=== PATIENT | female | born 1990 | race Caucasian/White ===

== ENCOUNTER → 2018-08-23 10:01 | Outpatient (CLI) | payer BC, SELFPAY ==
[2018-08-23 12:02] LABS: Hematocrit 42.6 % (37-47); Hemoglobin 14.3 g/dl (12.0-15.0); Mean Corp Hgb Conc 33.6 g/gl (32-36); Mean Corpuscular Hgb 28.3 pg (27.0-32.0); Mean Corpuscular Volume 84.2 fL (81-99); Mean Platelet Vol. 9.9 fl (6.2-12.0); Platelet Count 420 K/mm3 (150-450); RBC Distribution Width CV 12.5 % (11.6-14.6); RBC Distribution Width SD 38.3 fl (35.1-43.9); Red Blood Count 5.06 M/mm3 (4.2-5.4); White Blood Count 10.1 K/mm3 (4.4-11.0)
[2018-08-23 12:12] LABS: Scan Indicated on CBC? Y/N NO
[2018-08-23 12:13] LABS: Hemoglobin A1c 5.4 % (4.2-6.3)
[2018-08-23 12:16] LABS: Vitamin D,25 Hydroxy 16.5 ng/mL (29.95-100.01)
[2018-08-23 12:25] LABS: AST(SGOT) 21 U/L (15-37); Alanine Aminotransfer ALT/SGPT 44 U/L (13-56); Anion Gap 10 (5-15); BUN 8 mg/dL (7-18); BUN/Creat Ratio 11.3 RATIO (10-20); Calcium,Total 9.4 mg/dL (8.5-10.1); Chloride 107 mmol/L (98-107); Cholesterol 210 mg/dL (200); Creatinine, Serum 0.71 mg/dL (0.55-1.02); EST Glomerular Filtration Rate 103 mL/min (>60); Est Glom Filt Rate - Afr Amer 124 mL/min (>60); Glucose 89 mg/dL (74-106); High Density Lipoprotein 36 mg/dL; Potassium 4.1 mmol/L (3.5-5.1); Sodium Level 141 mmol/L (136-145); Thyroid Stim Hormone (TSH) 2.61 uIU/mL (0.358-3.74); Triglycerides 217 mg/dL; Very Low Density Lipoprotein 43 mg/dL (5-40)
== END ==
DX: Z79.899 Other long term (current) drug therapy (principal)
CPT/HCPCS: 36415; 80048; 80061; 80178; 82306; 83036; 84443; 84450; 84460; 85027

== ENCOUNTER → 2018-09-30 19:39 | Outpatient (CLI) | payer BC, SELFPAY ==
--- NOTE | 2018-09-30 14:30 | VUL_PTH ---
PATIENT: KESHIA MEREDITH LOC: [facility] U#:[id number] AGE/SX: 35/F ROOM: RE09/30/[address]: Dr. Uriel Vaughan MD : [id number] BED: DIS: SPEC #: [id number] RECD: 09/30/18 17:44 STATUS: ZEHRA REEmma #: [id number] JUAN CARLOS: 09/30/18 14:[address]: Uriel Vaughan DEPT: SURGICAL PATHOLOGY RECD BY: Manjinder Sanford ENTERED: 10/01/18 08:25 SP TYPE: VULVA BX OTHR DR: No Primary Care Phys Tissues: Vulva, NOS Procedures: Surgery Specimen Level IV HEADER OPERATION: Vulvar biopsy PRE-OP DIAGNOSIS: L91.8 TISSUE SUBMITTED: Vulvar biopsy MICROSCOPIC DIAGNOSIS Vulva, punch biopsy: A piece of skin with hyperkeratosis and minimal chronic inflammation. SJ:ling 10/04/18 COMMENT Clinical correlation and appropriate follow up are necessary. MICROSCOPIC DESCRIPTION Slides are reviewed. GROSS DESCRIPTION Received in fixative is one container labeled with the patient's name and designated vulvar biopsy. The specimen consists of one irregular fragment of lorenzo-yellow soft tissue that measures 0.4 x 0.2 x 0.2 cm. The specimen is totally submitted in one cassette. / RY:ling 10/01/18 TC:3 [facility]: [id number]
[2018-10-06 15:35] LABS: HPV Reflexed? NOT INDICATED
== END ==
PROVIDERS: Referring Provider Obstetrics & Gynecology; Visit Provider Obstetrics & Gynecology
DX: Z12.4 Encounter for screening for malignant neoplasm of cervix (principal); L91.8 Other hypertrophic disorders of the skin
CPT/HCPCS: 87624; 88175; 88305; G0145

== ENCOUNTER → 2018-12-27 16:32 | Outpatient (CLI) | payer BC, SELFPAY | PROVIDERS: Visit Provider Obstetrics & Gynecology | DX: N39.0 Urinary tract infection, site not specified (principal) | CPT/HCPCS: 87086; 87088 ==

== ENCOUNTER → 2019-11-04 13:19 | Outpatient (CLI) | payer BC, SELFPAY | PROVIDERS: Visit Provider Obstetrics & Gynecology | DX: R30.0 Dysuria (principal) | CPT/HCPCS: 87086 ==

== ENCOUNTER 2020-07-23 13:09 | Outpatient (RCR) | payer BC, SELFPAY | END 2020-07-25 23:59 | LOC: NS 13:09 | PROVIDERS: Visit Provider Nurse Practitioner Family | DX: Z71.3 Dietary counseling and surveillance (principal); E66.9 Obesity, unspecified; Z68.37 Body mass index [BMI] 37.0-37.9, adult | CPT/HCPCS: 97802 ==

== ENCOUNTER 2020-08-21 13:30 | Outpatient (RCR) | payer BC, SELFPAY | END 2020-08-25 23:59 | LOC: NS 13:30 | PROVIDERS: Visit Provider Nurse Practitioner Family | DX: Z71.3 Dietary counseling and surveillance (principal); E66.9 Obesity, unspecified; Z68.37 Body mass index [BMI] 37.0-37.9, adult | CPT/HCPCS: 97803 ==

== ENCOUNTER 2020-09-18 15:00 | Outpatient (RCR) | payer BC, SELFPAY ==
[2020-08-27 11:10] VITALS: BMI 43.3
== END 2020-09-24 23:59 ==
LOC: NS 15:00
PROVIDERS: Visit Provider Nurse Practitioner Family
DX: Z71.3 Dietary counseling and surveillance (principal); E66.9 Obesity, unspecified; Z68.37 Body mass index [BMI] 37.0-37.9, adult
CPT/HCPCS: 97803

== ENCOUNTER 2020-09-21 19:26 | Emergency (ER) | payer BC, SELFPAY ==
[2020-08-27 11:10] VITALS: BMI 43.3
[2020-09-21 19:27] VITALS: BP 163/112; PULSE 128; RESP 16; TEMP 36.3; O2SAT 98; BMI 36.8
--- NOTE | 2020-09-21 19:43 | EKG12_ITS ---
Test Reason : HEADACHE Blood Pressure : / mmHG Vent. Rate : 120 BPM Atrial Rate : 120 BPM P-R Int : 140 ms QRS Dur : 080 ms QT Int : 320 ms P-R-T Axes : 062 069 049 degrees QTc Int : 452 ms Sinus tachycardia Otherwise normal ECG Confirmed by ASH WALSH, BILLIE ([id number]), sports editor JANE PATEL ([id number]) on 09/25/2020 9:09:07 AM Referred By: GÉNESIS Confirmed By:BILLIE ALEMAN MD
--- NOTE | 2020-09-21 19:45 | ED.DCSUM_ITS ---
- ER Visit Summary Date of Service: 09/21/20 Chief Complaint: Headache History of Present Illness: The patient is a [address] Torre. She reports that she has a headache that began 1 month ago. Is a continuous aching pressure that is frontal in location. 6-10 at worst and 4-10 currently. Is worsened by standing relieved by laying down. She has had nausea without vomiting. No fever. She has had photophobia. Patient reports that she is been on Augmentin for the past week for a sinus infection. She denies any fever or chills. She does report she has a cough that is productive of thick white sputum without blood. This is been present for 1 month as well. She had a negative Covid with the onset of this. She reports that since starting the Augmentin she is having diarrhea approximately 4 times a day. No blood in her stools or black tarry stools. She denies any numbness or weakness. Physical Examination: Vitals: Stable. Afebrile. General: Well-nourished and well-developed. Head: Normocephalic atraumatic. Neck: Supple, no lymphadenopathy. No JVD. Nontender. Cardiovascular: Tachycardic regular rhythm. No murmurs. Respiratory: No respiratory distress. Clear to auscultation bilaterally. Abdominal: Soft, nontender, nondistended, normal bowel sounds. No guarding, rebound, or peritoneal signs. Back: Nontender. Extremities: Nontender, no edema. Skin: Normal color, no rash. Neurologic: Alert and oriented ?3. Cranial nerves II through XII are intact. Normal strength and sensation. Psych: Normal affect. Test Results: EKG shows sinus tachycardia at a rate of [address] changes. CBC is normal. Chem-7 shows a chloride of 109, glucose 123. test is negative. UCG is 1.57. Chest x-ray shows no acute disease. COVID-[address] brain shows no acute disease. Emergency Department Course and Treatment: Patient had an IV placed. She was given a liter normal saline. She was given Tylenol for headache. She refused nausea medications. Treatment Plan: Patient will be discharged with symptomatic care. Follow-up with her primary care physician in 3 to 5 days if not improving. Return to the emergency department for any worsening symptoms. Disposition: To home in improved and stable condition. Impression: 1. Cephalgia. 2. URI. 3. Sinus tachycardia. This note was generated with [employer] dictation software. It may contain incorrect words, spelling, and punctuation that were not noted in review of the chart prior to signing ED Disposition - Plan for ED Patient: Instructions: ED Headache Unspecified Referrals: Melly Mendez SUPERINTENDENT MAINTENANCE, SUPERINTENDENT MAINTENANCE-C [Primary Care Provider] - 3-5 Days if not improving
[2020-09-21] MEDS: 0.9% Normal Saline 1,000 ML 1000 ML IV (20:00)
--- NOTE | 2020-09-21 20:00 | RAD_ITS ---
STUDY: X-RAY CHEST REASON FOR EXAM: Female, 30 years old. Headache TECHNIQUE: Frontal view of the chest COMPARISON: None. FINDINGS: The lungs are clear. There are no pleural effusions. There is no pneumothorax. The heart is normal in size. The visualized osseous structures are within normal limits. RAD/Chest 1 View (Portable) IMPRESSION: No acute thoracic pathology. Electronically Signed: Stephane Ware, at 20:44 EST Tel , Service support ,
[2020-09-21] MEDS: Acetaminophen 500 MG Tablet 1000 MG PO (20:01)
[2020-09-21 20:05] VITALS: PULSE 125; RESP 16; O2SAT 95
[2020-09-21 20:12] LABS: Absolute Lymphocyte Count 2.69 X10^3/uL (0.83-4.51); Absolute Neutrophil Count 6.5 X10^3/uL (2.0-7.7); Basophil# 0.07 X10^3/uL; Basophil% 0.7 % (0-1); Eosinophil# 0.35 X10^3/uL; Eosinophils% 3.4 % (0-5); Hematocrit 44.4 % (37-47); Hemoglobin 14.7 g/dL (12.0-15.0); Lymphocyte # 2.69 X10^3/ul (4.0); Lymphocyte % 26.4 % (19-41); Mean Corp Hgb Conc 33.1 g/dL (32-36); Mean Corpuscular Volume 84.6 fL (81-99); Mean Platelet Vol. 9.1 fl (6.2-12.0); Monocyte# 0.56 X10^3/uL; Monocyte% 5.5 % (0-10); NRBC Flagged by Analyzer 0 % (0-5); Neutrophil # 6.49 X10^3/uL (2.7-7.7); Neutrophil % 63.6 % (47-70); Platelet Count 376 K/mm3 (150-450); RBC Distribution Width CV 12.1 % (11.6-14.6); RBC Distribution Width SD 36.5 fl (35.1-43.9); Red Blood Count 5.25 M/mm3 (4.2-5.4); White Blood Count 10.2 K/mm3 (4.4-11.0)
[2020-09-21 20:28] LABS: Internal QC Validated? YES +Cl - CLEAR BKGD; Pregnancy, Serum, hCG Quali. NEGATIVE Negative
[2020-09-21 20:40] LABS: Anion Gap 7 (5-15); BUN 12 mg/dL (7-18); BUN/Creat Ratio 14.7 RATIO (10-20); Calcium,Total 9.1 mg/dL (8.5-10.1); Chloride 109 mmol/L (98-107); Creatinine, Serum 0.81 mg/dL (0.55-1.02); EST Glomerular Filtration Rate 86 mL/min (>60); Est Glom Filt Rate - Afr Amer 105 mL/min (>60); Estimated Creatinine Clearance 89.72 ml/min; Glucose 123 mg/dL (74-106); Potassium 3.8 mmol/L (3.5-5.1); Sodium Level 141 mmol/L (136-145); Thyroid Stim Hormone (TSH) 1.57 uIU/mL (0.358-3.74)
--- NOTE | 2020-09-21 20:42 | CT_ITS ---
STUDY: CT BRAIN WITHOUT CONTRAST REASON FOR EXAM: Female, 30 years old. Headache RADIATION DOSAGE (If Supplied By Facility): CTDIvol = ( 44.99 ) mGy, DLP = ( 812.98 ) mGycm TECHNIQUE: Transaxial CT imaging of the brain was performed without administration of intravenous contrast material. Individualized dose optimization techniques were used for this CT. COMPARISON: None. FINDINGS: There is no acute bleed or infarct. There are normal white matter tracts. The ventricles are normal in configuration. There is no hydrocephalus. The visualized paranasal sinuses are clear. The mastoid air cells are well aerated. There is no skull fracture. CT/Brain/Head without Contrast IMPRESSION: No acute intracranial abnormality. Electronically Signed: Stephane Ware, at 21:20 EST Tel , Service support ,
[2020-09-21 22:08] VITALS: BP 130/77; PULSE 115; RESP 19; O2SAT 97
== END 2020-09-21 22:08 | disposition home or self-care (01) ==
LOC: ED 19:50
PROVIDERS: Emergency Provider Emergency Medicine; PCP Nurse Practitioner Family
DX: R51.9 Headache, unspecified (principal); J06.9 Acute upper respiratory infection, unspecified; R00.0 Tachycardia, unspecified; E03.9 Hypothyroidism, unspecified; F32.9 Major depressive disorder, single episode, unspecified; F41.9 Anxiety disorder, unspecified
CPT/HCPCS: 70450; 71045; 80048; 84443; 84703; 85025; 87426; 93005; 99284

== ENCOUNTER 2020-10-23 15:30 | Outpatient (RCR) | payer BC, SELFPAY | END 2020-10-25 23:59 | LOC: NS 15:30 | PROVIDERS: PCP Nurse Practitioner Family; Visit Provider Nurse Practitioner Family | DX: Z71.3 Dietary counseling and surveillance (principal); E66.9 Obesity, unspecified; Z68.37 Body mass index [BMI] 37.0-37.9, adult | CPT/HCPCS: 97803 ==

== ENCOUNTER 2020-11-20 18:00 | Outpatient (RCR) | payer BC, SELFPAY ==
[2020-11-06 19:21] VITALS: BMI 36.1
[2020-11-13 19:50] VITALS: BMI 35.9
[2020-11-20 19:27] VITALS: BMI 35.9
== END 2020-11-25 23:59 ==
LOC: NS 18:00
PROVIDERS: PCP Nurse Practitioner Family; Visit Provider Nurse Practitioner Family
DX: Z71.3 Dietary counseling and surveillance (principal); R73.03 Prediabetes
CPT/HCPCS: G9873; G9891

== ENCOUNTER 2020-12-18 18:00 | Outpatient (RCR) | payer BC, SELFPAY ==
[2020-12-03 14:07] VITALS: BMI 35.9
[2020-12-04 19:24] VITALS: BMI 35.6
[2020-12-11 19:00] VITALS: BMI 35.5
[2020-12-18 19:43] VITALS: BMI 35.2
== END 2020-12-23 23:59 ==
LOC: NS 18:00
PROVIDERS: PCP Nurse Practitioner Family; Visit Provider Nurse Practitioner Family
DX: Z71.3 Dietary counseling and surveillance (principal); R73.03 Prediabetes
CPT/HCPCS: G9874; G9891

== ENCOUNTER → 2020-12-26 | Outpatient (CLI) | payer BC, SELFPAY ==
[2020-12-18 19:43] VITALS: BMI 35.2
[2021-01-02 12:20] LABS: HPV Reflexed? NOT INDICATED
== END | disposition home or self-care (01) ==
LOC: LABSPEC 16:31
PROVIDERS: PCP Nurse Practitioner Family; Visit Provider Obstetrics & Gynecology
DX: Z12.4 Encounter for screening for malignant neoplasm of cervix (principal)
CPT/HCPCS: 88175; G0145

== ENCOUNTER 2021-01-01 18:00 | Outpatient (RCR) | payer BC, SELFPAY ==
[2021-01-01 19:17] VITALS: BMI 35.1
[2021-01-15 19:46] VITALS: BMI 35.1
== END 2021-01-23 23:59 ==
LOC: NS 18:00
PROVIDERS: PCP Nurse Practitioner Family; Visit Provider Nurse Practitioner Family
DX: Z71.3 Dietary counseling and surveillance (principal); R73.03 Prediabetes
CPT/HCPCS: G9875; G9891

== ENCOUNTER 2021-02-12 18:00 | Outpatient (RCR) | payer BC, SELFPAY ==
[2021-01-30 13:06] VITALS: BMI 34.9
[2021-02-13 19:55] VITALS: BMI 34.4
== END 2021-02-22 23:59 ==
LOC: NS 18:00
PROVIDERS: PCP Nurse Practitioner Family; Visit Provider Nurse Practitioner Family
DX: Z71.3 Dietary counseling and surveillance (principal); R73.03 Prediabetes
CPT/HCPCS: G9891

== ENCOUNTER 2021-03-12 18:00 | Outpatient (RCR) | payer BC, SELFPAY ==
[2021-02-26 19:58] VITALS: BMI 34.3
== END 2021-03-25 23:59 ==
LOC: NS 18:00
PROVIDERS: PCP Nurse Practitioner Family; Visit Provider Nurse Practitioner Family
DX: R73.03 Prediabetes (principal); Z71.3 Dietary counseling and surveillance
CPT/HCPCS: G9891

== ENCOUNTER 2021-04-23 18:00 | Outpatient (RCR) | payer BC, SELFPAY ==
[2021-02-26 19:58] VITALS: BMI 34.3
[2021-03-26 13:26] VITALS: BMI 33.9
[2021-04-04 13:28] VITALS: BMI 34.2
[2021-04-10 13:31] VITALS: BMI 33.7
[2021-04-23 19:41] VITALS: BMI 34.4
== END 2021-04-24 23:59 ==
LOC: NS 18:00
PROVIDERS: PCP Nurse Practitioner Family; Visit Provider Nurse Practitioner Family
DX: Z71.3 Dietary counseling and surveillance (principal); R73.03 Prediabetes
CPT/HCPCS: G9880; G9891

== ENCOUNTER 2021-05-14 18:00 | Outpatient (RCR) | payer BC, SELFPAY ==
[2021-05-13 18:19] VITALS: BMI 33.5
[2021-05-14 19:36] VITALS: BMI 34.2
== END 2021-05-25 23:59 ==
LOC: NS 18:00
PROVIDERS: PCP Nurse Practitioner Family; Visit Provider Nurse Practitioner Family
DX: Z71.3 Dietary counseling and surveillance (principal); R73.03 Prediabetes
CPT/HCPCS: G9891

== ENCOUNTER 2021-06-25 18:00 | Outpatient (RCR) | payer BC, SELFPAY ==
[2021-06-11 19:15] VITALS: BMI 33.7
[2021-06-12 10:14] VITALS: BMI 33.5
[2021-06-25 19:51] VITALS: BMI 34.8
== END 2021-06-25 23:59 ==
LOC: NS 18:00
PROVIDERS: PCP Nurse Practitioner Family; Visit Provider Nurse Practitioner Family
DX: Z71.3 Dietary counseling and surveillance (principal); R73.03 Prediabetes
CPT/HCPCS: G9891

== ENCOUNTER 2021-07-23 18:00 | Outpatient (RCR) | payer BC, SELFPAY ==
[2021-06-26 00:30] VITALS: BMI 34.8
[2021-07-10 11:08] VITALS: BMI 34.7
[2021-07-25 08:53] VITALS: BMI 34.9
== END 2021-07-25 23:59 ==
LOC: NS 18:00
PROVIDERS: PCP Nurse Practitioner Family; Visit Provider Nurse Practitioner Family
DX: Z71.3 Dietary counseling and surveillance (principal); R73.03 Prediabetes
CPT/HCPCS: G9891

== ENCOUNTER 2021-08-20 18:00 | Outpatient (RCR) | payer BC, SELFPAY ==
[2021-07-26 00:24] VITALS: BMI 34.7
[2021-08-20 19:05] VITALS: BMI 35.6
== END 2021-08-25 23:59 ==
LOC: NS 18:00
PROVIDERS: PCP Nurse Practitioner Family; Visit Provider Nurse Practitioner Family
DX: Z71.3 Dietary counseling and surveillance (principal); R73.03 Prediabetes
CPT/HCPCS: G9891

== ENCOUNTER 2021-09-17 18:00 | Outpatient (RCR) | payer BC, SELFPAY ==
[2021-08-26 00:20] VITALS: BMI 35.6
== END 2021-09-24 23:59 ==
LOC: NS 18:00
PROVIDERS: PCP Nurse Practitioner Family; Visit Provider Nurse Practitioner Family
DX: Z71.3 Dietary counseling and surveillance (principal); R73.03 Prediabetes
CPT/HCPCS: G9891

== ENCOUNTER 2021-10-15 18:00 | Outpatient (RCR) | payer BC, SELFPAY ==
[2021-09-25 00:25] VITALS: BMI 35.6
== END 2021-10-25 23:59 ==
LOC: NS 18:00
PROVIDERS: PCP Nurse Practitioner Family; Visit Provider Nurse Practitioner Family
DX: Z71.3 Dietary counseling and surveillance (principal); R73.03 Prediabetes
CPT/HCPCS: G9891

== ENCOUNTER 2022-04-18 11:40 | Emergency (ER) | payer OTHER, SELFPAY ==
[2022-04-18 11:41] VITALS: BP 153/88; PULSE 120; RESP 18; TEMP 37.2; O2SAT 96; BMI 38.1
--- NOTE | 2022-04-18 12:03 | EKG12_ITS ---
Test Reason : CP Blood Pressure : / mmHG Vent. Rate : 114 BPM Atrial Rate : 114 BPM P-R Int : 148 ms QRS Dur : 094 ms QT Int : 332 ms P-R-T Axes : 062 058 043 degrees QTc Int : 457 ms Sinus tachycardia Poor R wave progression Confirmed by LEONARDA WALSH, FR[place] ([id number]), acquisition editor JANE PATEL ([id number]) on 04/22/2022 8:05:26 AM Referred By: Confirmed By:FRANCE BROWER MD
[2022-04-18] MEDS: Ondansetron 4 MG/2 ML Vial IV (12:15)
[2022-04-18] MEDS: 0.9% Normal Saline 1,000 ML 1000 ML IV ×2 (12:15→13:09)
[2022-04-18 12:36] LABS: Anion Gap 8 (5-15); BUN 10 mg/dL (7-18); BUN/Creat Ratio 13.6 RATIO (10-20); Calcium,Total 9.6 mg/dL (8.5-10.1); Chloride 103 mmol/L (98-107); Creatinine, Serum 0.74 mg/dL (0.55-1.02); EST Glomerular Filtration Rate 96 mL/min (>60); Est Glom Filt Rate - Afr Amer 116 mL/min (>60); Glucose 133 mg/dL (74-106); Potassium 3.1 mmol/L (3.5-5.1); Sodium Level 137 mmol/L (136-145)
[2022-04-18 12:40] VITALS: BP 124/71; PULSE 86; RESP 14; O2SAT 98
--- NOTE | 2022-04-18 12:55 | EX.ED.DYSGE1 ---
HPI History of Present Illness Chief Complaint: Chest Pain Detail of Chief Complaint: High blood pressure, rapid heart rate and nausea, vomiting diarrhea Informant: patient Onset/Context/Timing Onset: Days Context: Sudden Onset Timing: Continuous Quality: Heart rate varying between 1 25-1 54, systolic blood pressure in the mid to Location: Per HPI narrative Current Severity: Mild Maximum Severity: Moderate Worsened by: Nothing per patient Relieved by: Nothing per patient Associated Symptoms Associated Symptoms: Per HPI narrative Narrative Narrative: Patient is a 31-year-old woman who has been on antihypertensive medication for several years. She states her systolic pressure is normally in the 120s. Her blood pressure recently has been in the mid to upper 150s with a diastolic of 95-100. She denies headache. She denies visual, ocular auditory symptoms. She does endorse nausea, vomiting diarrhea. She is had several episodes of emesis per day for the past several days. She states today she has had loose stool hourly. She denies blood or mucus in her stool. She denies blood or coffee-ground appearance to the gastric content. She denies symptoms of . She denies dysuria, frequency, urgency or hematuria. She does report decreased urine output. She does not believe her urine is darker than normal. She denies ROTARY DRIER symptoms. She denies paresthesia, anesthesia or weakness. Denies problems with balance or coordination. Prior similar symptoms: No Recent Illness/Hospitalization: No [facility] Medical History A-fib Depression HTN (hypertension) Hypothyroidism PAC (premature atrial contraction) PVC (premature ventricular contraction) Sinus tachycardia Vitamin D deficiency Home Medications buspirone 15 mg tablet 15 mg PO BID 08/27/20 [History Last Taken Unknown] levonorgestrel 20 mcg/24 hours (7 yrs) 52 mg intrauterine device (Mirena) 1 device intrauterine ONCE 08/27/20 [History Last Taken Unknown] onabotulinumtoxinA 100 unit solution for injection (Botox) 100 unit IM ONCE 08/27/20 [History Last Taken Unknown] sertraline 100 mg tablet (Zoloft) 100 mg PO BID 08/27/20 [History Last Taken Unknown] levothyroxine 100 mcg tablet 100 mcg PO DAILY 09/21/20 [History Last Taken Unknown] amlodipine 2.5 mg tablet (Norvasc) 2.5 mg PO DAILY 02/04/21 [History Last Taken Unknown] atorvastatin 40 mg tablet (Lipitor) 40 mg PO DAILY 02/04/21 [History Last Taken Unknown] cholecalciferol (vitamin D3) 1,250 mcg (50,000 unit) capsule 1,250 mcg PO QWEEK 02/04/21 [History Last Taken Unknown] hydrochlorothiazide 50 mg tablet 50 mg PO DAILY 02/04/21 [History Last Taken Unknown] liraglutide (weight loss) 3 mg/0.5 mL (18 mg/3 mL) subcut pen injector (Saxenda) 3 mg (0.5 mL) subcut DAILY #15 mL 02/04/21 [Rx Last Taken Unknown] metoprolol tartrate 50 mg tablet (Lopressor) 50 mg PO DAILY 02/04/21 [History Last Taken Unknown] linaclotide 145 mcg capsule (Linzess) 1 cap PO DAILY 04/18/22 [History Last Taken Unknown] metoclopramide HCl 10 mg tablet 10 mg PO 4X/DAY PRN Headache #20 tabs 04/18/22 [Rx Last Taken Unknown] rimegepant 75 mg disintegrating tablet (Nurtec ODT) 1 tab PO PRN PRN Headache 04/18/22 [History Last Taken Unknown] Allergy/AdvReac Type Severity Reaction Status Date / Time Sulfa (Sulfonamide Allergy Severe hives Verified 04/18/22 11:48 Antibiotics) Family History Other Alcoholism Anxiety Clotting disorder Depression Diabetes Hx of transfusion of whole blood Mental disorder Myocardial infarction Thyroid disorder Surgical History Hx of section Social History (Updated 04/18/22 @ 12:[address] Malcolm Sierra MD) Smoking Status: Never smoker alcohol intake: current alcohol intake frequency: holidays/special occasions only substance use type: does not use ROS ROS ED Constitutional Constitutional ED: Denies chills, fever(s), subjective, sweats or weight loss Eyes Eyes: Denies blurry vision, change in vision or diplopia ENT ENT ED: Denies ear pain, rhinorrhea or sore throat Cardiovascular Cardiovascular: Reports palpitations and racing heartbeat; Denies chest pain or orthopnea Respiratory/Chest Respiratory/Chest: Denies cough, dyspnea, dyspnea on exertion or orthopnea Gastrointestinal Gastrointestinal: Reports diarrhea, nausea and vomiting; Denies abdominal pain, constipation or melena Genitourinary Genitourinary ED: Denies dysuria, hematuria or urinary frequency Musculoskeletal Musculoskeletal: Denies arthralgias, back pain, myalgias or neck pain Integumentary Denies Abrasions or rash Neurologic Neurologic: Reports weakness; Denies headache(s), paresthesias or other Endocrine Endocrinology: Denies cold intolerance, heat intolerance, polydipsia, polyphagia or polyuria Allergic/Immunologic Allergic/Immunologic ED: Denies mouth swelling, tongue swelling or urticaria EXAM Physical Exam Narrative Exam Narrative: Patient appears ill but not toxic. She is slightly pale. Const Vital Signs: 04/18/22 11:41 04/18/22 12:40 04/18/22 13:07 Temperature 98.9 F Temperature Source Temporal Pulse Rate 120 H 86 96 Respiratory Rate 18 14 16 Blood Pressure 153/88 H 124/71 H 130/75 H Blood Pressure Mean 109 88 93 Pulse Ox 96 98 98 Oxygen Delivery Method Room Air Room Air Room Air 04/18/22 14:47 Temperature Temperature Source Pulse Rate 89 Respiratory Rate 16 Blood Pressure 135/86 H Blood Pressure Mean 102 Pulse Ox 100 Oxygen Delivery Method Room Air Positive well nourished, well developed and obese General Appearance ED: well developed and pallor; Negative for cyanotic, diaphoretic or NAD Nutritional Appearance: obese HEENT Reports dry mucous membranes HEENT Narrative: Uvula midline. There is no erythema or exudate the posterior pharynx. Ears normal. Nares patent. Head is atraumatic normocephalic. Mouth ED: Yes dry mucous membranes Mouth: dry mucous membranes Eyes PERRL and EOMs intact bilaterally General Eye ED: Negative for pale conjunctiva or scleral icterus Neck no lymphadenopathy, supple and no JVD Resp normal respiratory effort and clear to auscultation bilaterally Cardio regular rhythm, S1 normal heart sound, S2 normal heart sound and no murmurs Rate: tachycardic GI normal to inspection, nondistended, normoactive bowel sounds, non-tender, non-distended and hepatosplenomegaly Back/Spine no CVA tenderness Cervical Spine: Negative for cervical spine tenderness Thoracic Spine / Upper Back: Negative for paraspinal muscle tenderness Lumbar Spine / Lower Back: Negative for lumbar spinal tenderness Extremity normal to inspection Extremity Narrative: There is no asymmetry, swelling, discoloration, leg vein distention, palpable cords or tenderness along the distribution of the deep venous system. Neuro No oriented x3, No CN's II-XII intact bilaterally and No no sensory deficits noted Sensorium / Orientation: alert Motor Exam: strength 5/5 throughout Psych Psych Narrative: Mood and affect are flat. Skin General Skin Exam: pallor; Negative for jaundice Lesions: No lesion noted Rashes: No rashes noted Trauma: Negative for abrasion Wounds: Negative for wounds noted MDM MDM MDM Narrative Medical decision making narrative: Medically patient is dehydrated. Suspect her tachycardia is due to the dehydration. 1 L normal saline was ordered. She was ordered antiemetic and antidiarrheal medicine for her vomiting and diarrhea. Electrolyte panel was obtained to assess renal function and electrolytes. Lab Data Attestation: I reviewed the patient's lab results. Lab results narrative: Basic metabolic panels marked for hypokalemia, 3.1 and consistent with significant diarrhea. Glucose is elevated 133. There is no history of diabetes. Labs: Laboratory Results - last 24 hr 04/18/22 11:53 Sodium 137 Potassium 3.1 L Chloride 103 Carbon Dioxide 26.0 Anion Gap 8 BUN 10 Creatinine 0.74 Estim Creat Clear Calc 97.30 Est GFR (MDRD) Af Amer 116 Est GFR (MDRD) Non-Af 96 BUN/Creatinine Ratio 13.6 Glucose 133 H Calcium 9.6 EKG Initial EKG: Attestation: I personally reviewed and interpreted this EKG as follows: Interpretation: Sinus Tachycardia (Sinus tachycardia with a ventricular rate of 114 otherwise normal. MO interval is 148 ms. Cures duration 94 ms. QT duration 232 ms. Faucett is normal.) Treatment and Re-Evaluation Narrative: Patient was reassessed at 10/28/2001. Patient has no urge to urinate. A second liter was ordered. She was informed of her blood test results. Her heart rate has improved markedly and her blood pressure improved markedly. Suspect with her dehydration that this activated her renin angiotensin cycle causing her to have to be hypertensive. Patient was reassessed at 1444. She feels markedly better. She requested Reglan since she has history of gastroparesis for treatment of her nausea as an outpatient. Patient has urinated. She has passed p.o. challenge. Discharge Plan Triage Chief Complaint: Chest Pain ED Provider: Malcolm Sierra Dx/Rx/DC Orders Clinical Impression: Abdominal pain, vomiting, and diarrhea, Moderate dehydration, Sinus tachycardia Instructions: ED Vomiting and Diarrhea ... Prescriptions: New metoclopramide HCl [metoclopramide HCl] 10 mg tablet 10 mg PO 4X/DAY PRN (Reason: Headache) Qty: 20 0RF No Action sertraline [Zoloft] 100 mg tablet 100 mg PO BID buspirone 15 mg tablet 15 mg PO BID levonorgestrel 20 mcg/24 hours (5 yrs) 52 mg intrauterine device 20 mcg/24 hours (5 yrs) 52 mg intrauterine device 1 device intrauterine ONCE Rx Instructions: as a single dose onabotulinumtoxinA 100 unit solution for injection 100 unit recon soln 100 unit IM ONCE cholecalciferol (vitamin D3) 1,250 mcg (50,000 unit) capsule 1,250 mcg PO QWEEK atorvastatin [Lipitor] 40 mg tablet 40 mg PO DAILY amlodipine [Norvasc] 2.5 mg tablet 2.5 mg PO DAILY metoprolol tartrate [Lopressor] 50 mg tablet 50 mg PO DAILY hydrochlorothiazide 50 mg tablet 50 mg PO DAILY Saxenda 3 mg/0.5 mL (18 mg/3 mL) pen injector 3 mg SC DAILY Qty: 15 3RF levothyroxine 100 MCG tablet 100 mcg PO DAILY Linzess 145 mcg capsule 1 cap PO DAILY Label Comments: take 1 capsule by mouth once daily AT 6:00AM Nurtec ODT 75 mg tablet,disintegrating 1 tab PO PRN PRN (Reason: Headache) Label Comments: TAKE 1 TABLET AT ONSET OF HEADACHE. MAX DOSE OF 1 TABLET IN 24 HOURS Primary Care Provider: Melly Mendez NP Referrals: Melly Mendez NP, SOAP MAKER-C [Primary Care Provider] - Disposition Disposition: Home, Self Care
[2022-04-18] MEDS: Loperamide 2 MG Capsule 4 MG PO (12:56)
[2022-04-18 13:07] VITALS: BP 130/75; PULSE 96; RESP 16; O2SAT 98
[2022-04-18 14:47] VITALS: BP 135/86; PULSE 89; RESP 16; O2SAT 100
[2022-04-18] MEDS: Metoclopramide 10 MG/2 ML Vial 5 MG IV (15:09)
== END 2022-04-18 15:40 | disposition home or self-care (01) ==
PROVIDERS: Emergency Provider Emergency Medicine; PCP Nurse Practitioner Family; Visit Provider Emergency Medicine
DX: E86.0 Dehydration (principal); R10.9 Unspecified abdominal pain; R11.2 Nausea with vomiting, unspecified; R19.7 Diarrhea, unspecified; R00.0 Tachycardia, unspecified; I10 Essential (primary) hypertension; E03.9 Hypothyroidism, unspecified; E66.9 Obesity, unspecified; F32.A Depression, unspecified; Z79.899 Other long term (current) drug therapy
CPT/HCPCS: 80048; 93005; 96361; 96374; 96375; 99284; J2405

== ENCOUNTER 2023-10-14 16:14 | Emergency (ER) | payer OTHER, SELFPAY ==
[2023-10-14 16:15] VITALS: BP 126/94; PULSE 70; RESP 14; TEMP 36.6; O2SAT 98; BMI 37.8
--- NOTE | 2023-10-14 16:32 | EDS_ITS ---
HPI History of Present Illness Chief Complaint: Cough Informant: patient Onset/Context/Timing Onset: Today Context: Gradual Onset Timing: Continuous Quality: Aching, sharp at times Location: Chest Worsened by: Deep breathing and cough Relieved by: Nothing Narrative Narrative: Patient presents with cough and hemoptysis that began today. Patient states she had an endoscopic procedure yesterday for her gastroparesis. Patient states that her breathing is worse today. Patient states she has some pain in her chest that is worse with deep breathing and with coughing. Patient describes it as aching but sharp at times. Patient states she is Coughing up mucus with occ asional spots of blood in it. Patient denies any fevers or chills. Patient admits to a sore throat but she thinks this is likely due to the procedure. Patient also admits to some dizziness and lightheadedness. [facility] Medical History A-fib Depression HTN (hypertension) Hypothyroidism PAC (premature atrial contraction) PVC (premature ventricular contraction) Sinus tachycardia Vitamin D deficiency Home Medications buspirone 15 mg tablet 15 mg PO BID 08/27/20 [History Last Taken Unknown] levonorgestrel 21 mcg/24 hours (8 yrs) 52 mg intrauterine device (Mirena) 1 device intrauterine ONCE 08/27/20 [History Last Taken Unknown] onabotulinumtoxinA 100 unit solution for injection (Botox) 100 unit IM ONCE 08/27/20 [History Last Taken Unknown] sertraline 100 mg tablet (Zoloft) 100 mg PO BID 08/27/20 [History Last Taken Unknown] levothyroxine 100 mcg tablet 100 mcg PO DAILY 09/21/20 [History Last Taken Unknown] amlodipine 2.5 mg tablet (Norvasc) 2.5 mg PO DAILY 02/04/21 [History Last Taken Unknown] atorvastatin 40 mg tablet (Lipitor) 40 mg PO DAILY 02/04/21 [History Last Taken Unknown] cholecalciferol (vitamin D3) 1,250 mcg (50,000 unit) capsule 1,250 mcg PO QWEEK 02/04/21 [History Last Taken Unknown] hydrochlorothiazide 50 mg tablet 50 mg PO DAILY 02/04/21 [History Last Taken Unknown] liraglutide (weight loss) 3 mg/0.5 mL (18 mg/3 mL) subcut pen injector (Saxenda) 3 mg (0.5 mL) subcut DAILY #15 mL 02/04/21 [Rx Last Taken Unknown] metoprolol tartrate 50 mg tablet (Lopressor) 50 mg PO DAILY 02/04/21 [History Last Taken Unknown] linaclotide 145 mcg capsule (Linzess) 1 cap PO DAILY 04/18/22 [History Last Taken Unknown] metoclopramide HCl 10 mg tablet 10 mg PO 4X/DAY PRN Headache #20 tabs 04/18/22 [Rx Last Taken Unknown] rimegepant 75 mg disintegrating tablet (Nurtec ODT) 1 tab PO PRN PRN Headache 04/18/22 [History Last Taken Unknown] Allergy/AdvReac Type Severity Reaction Status Date / Time Sulfa (Sulfonamide Allergy Severe hives Verified 10/14/23 16:15 Antibiotics) Family History Other Alcoholism Anxiety Clotting disorder Depression Diabetes Hx of transfusion of whole blood Mental disorder Myocardial infarction Thyroid disorder Surgical History Hx of section Social History Smoking Status: Never smoker alcohol intake: current alcohol intake frequency: holidays/special occasions only substance use type: does not use ROS ROS ED Constitutional Constitutional ED: Denies chills or fever(s) Eyes Eyes: Denies blurry vision or change in vision ENT ENT ED: Reports sore throat; Denies rhinorrhea Cardiovascular Cardiovascular: Reports chest pain; Denies palpitations Respiratory/Chest Respiratory/Chest: Reports cough and dyspnea Gastrointestinal Gastrointestinal: Denies nausea or vomiting Genitourinary Genitourinary ED: Denies dysuria or hematuria Musculoskeletal Musculoskeletal: Reports back pain; Denies neck pain Integumentary Denies abscess or rash Neurologic Neurologic: Denies headache(s) or weakness Allergic/Immunologic Allergic/Immunologic ED: Denies mouth swelling or urticaria EXAM Physical Exam Const Vital Signs: 10/14/23 16:15 10/14/23 16:40 10/14/23 18:14 Temperature 98 F Temperature Source Temporal Pulse Rate 70 68 Respiratory Rate 14 14 Respiratory Effort Normal Non-Labored Respiratory Depth Normal Respiratory Pattern Normal Blood Pressure 126/94 H Blood Pressure Mean 104 Pulse Ox 98 98 Oxygen Delivery Method Room Air Room Air Room Air Positive well nourished, well developed and obese General Appearance ED: well developed and NAD Nutritional Appearance: obese HEENT Reports moist mucous membranes Neck supple and no JVD Chest Wall inspection of chest normal and palpation of chest normal Resp normal respiratory effort and clear to auscultation bilaterally Cardio regular rate and regular rhythm GI non-distended Palpation: soft and tender epigastric, LUQ and RUQ; Negative for guarding or rebound tenderness present Neuro oriented x3, CN's II-XII intact bilaterally and no sensory deficits noted Sensorium / Orientation: alert Motor Exam: strength 5/5 throughout Psych mental status grossly normal MDM MDM MDM Narrative Medical decision making narrative: Differential diagnosis includes cardiac dysrhythmia, cardiac ischemia, pulmonary embolism, pneumonia, pancreatitis, gastroesophageal reflux disease, cholelithiasis, cholecystitis, pneumothorax, and anxiety. EKG will be obtained to assess for cardiac dysrhythmia and cardiac ischemia. CTA of the chest will be obtained to assess for pulmonary embolism and pneumonia. CBC will be obtained to assess for leukocytosis and anemia. Comprehensive metabolic profile will be obtained to assess for hepatic function, renal function, and electrolyte abnormality. Lipase will be obtained to assess for pancreatitis. High- sensitivity troponin will be obtained to assess for cardiac ischemia. Lab Data Attestation: I reviewed the patient's lab results. Lab results narrative: CBC was reviewed. There is a mild leukocytosis of 14.5. The remainder is within normal limits. Comprehensive metabolic profile was reviewed. Glucose was slightly elevated at 114. Alkaline phosphatase was slightly elevated at 118. Lipase was reviewed and was normal at 24. High-sensitivity troponin was reviewed and was less than 3. Labs: Laboratory Results - last 24 hr 10/14/23 16:51 WBC 14.5 H RBC 4.80 Hgb 13.6 Hct 39.7 MCV 82.7 MCH 28.3 MCHC 34.3 RDW Std Deviation 38.2 RDW Coeff of Christian 12.7 Plt Count 413 MPV 9.0 Immature Gran % (Auto) 0.400 Neut % (Auto) 74.5 H Lymph % (Auto) 17.7 L Crawford % (Auto) 6.9 Eos % (Auto) 0.1 Baso % (Auto) 0.4 Absolute Neuts (auto) 10.8 H Absolute Lymphs (auto) 2.57 Nucleated RBC % 0 Sodium 137 Potassium 3.6 Chloride 106 Carbon Dioxide 24.0 Anion Gap 7 BUN 11 Creatinine 0.73 Estim Creat Clear Calc 96.79 Est GFR (MDRD) Af Amer 116 Est GFR (MDRD) Non-Af 96 BUN/Creatinine Ratio 15.0 Glucose 114 H Calcium 9.5 Total Bilirubin 0.60 AST 20 ALT 43 Alkaline Phosphatase 118 H Troponin I High Sens < 3 L Total Protein 7.9 Albumin 3.7 Globulin 4.2 Albumin/Globulin Ratio 0.9 Lipase 24 Radiography CTA PE Study: No Evidence of PE and No Evidence of Dissection Diagnostic Testing: Clinical Impression(s) from Imaging Studies Chest CTA 10/14/23 16:39 IMPRESSION: No PE, pneumonia, aortic dissection or other acute disease involving the chest. Free intraperitoneal air identified at the upper abdomen. Correlate for any recent procedures or surgeries that may have been introduced free air. Otherwise, would consider the possibility of hollow viscus rupture. AIDOC was utilized to assist in identifying pertinent positive findings. Electronically Signed: Ryan Montano MD at 17:59 EST , ADDENDUM: 10/14/23 194 IMPRESSION: No PE, pneumonia, aortic dissection or other acute disease involving the chest. Free intraperitoneal air identified at the upper abdomen. Correlate for any recent procedures or surgeries that may have been introduced free air. Otherwise, would consider the possibility of hollow viscus rupture. AIDOC was utilized to assist in identifying pertinent positive findings. N.B. : Augusto Moss DO, confirmed on 10/14/2023 19:34:26 (ET) that the healthcare facility has received the radiology report. Electronically Signed: Ryan Montano MD at 17:59 EST , CTA of the chest was obtained. There is no evidence of pulmonary embolism, pneumonia, or aortic dissection. There is some small pockets of free intraperitoneal air in the upper abdomen. This was interpreted by the radiologist and was also independently reviewed by myself. EKG Initial EKG: Attestation: I personally reviewed and interpreted this EKG as follows: Interpretation: Sinus Rhythm (69) and No Acute Injury Pattern Comments: EKG was obtained. On my independent interpretation, it showed a normal sinus rhythm with a rate of 69. PA interval, QRS interval, and QTc intervals were all normal. [place] was normal. There are no acute ST or T wave changes. Prior EKG tracings: available for review Prior: Unchanged (04/18/2022) Treatment and Re-Evaluation :: Patient was advised of her findings. Patient is resting comfortably on reevaluation. Case was discussed with Dr. Clarke from [facility]. He states that the free air is likely from the procedure yesterday. He was happy to accept the patient to be transferred to [facility] for observation. Patient will be transferred there. Patient understood and was agreeable with the plan. All questions were answered. Discharge Plan Triage Chief Complaint: Cough ED Provider: Augusto Moss Dx/Rx/DC Orders Clinical Impression: Postoperative abdominal pain, Obesity, Free intraperitoneal air Prescriptions: No Action sertraline [Zoloft] 100 mg tablet 100 mg PO BID buspirone 15 mg tablet 15 mg PO BID levonorgestrel 20 mcg/24 hours (5 yrs) 52 mg intrauterine device 20 mcg/24 hours (5 yrs) 52 mg intrauterine device 1 device intrauterine ONCE Rx Instructions: as a single dose onabotulinumtoxinA 100 unit solution for injection 100 unit recon soln 100 unit IM ONCE cholecalciferol (vitamin D3) 1,250 mcg (50,000 unit) capsule 1,250 mcg PO QWEEK atorvastatin [Lipitor] 40 mg tablet 40 mg PO DAILY amlodipine [Norvasc] 2.5 mg tablet 2.5 mg PO DAILY metoprolol tartrate [Lopressor] 50 mg tablet 50 mg PO DAILY hydrochlorothiazide 50 mg tablet 50 mg PO DAILY Saxenda 3 mg/0.5 mL (18 mg/3 mL) pen injector 3 mg SC DAILY Qty: 15 3RF levothyroxine 100 MCG tablet 100 mcg PO DAILY Linzess 145 mcg capsule 1 cap PO DAILY Patient Comments: take 1 capsule by mouth once daily AT 6:00AM Nurtec ODT 75 mg tablet,disintegrating 1 tab PO PRN PRN (Reason: Headache) Patient Comments: TAKE 1 TABLET AT ONSET OF HEADACHE. MAX DOSE OF 1 TABLET IN 24 HOURS metoclopramide HCl [metoclopramide HCl] 10 mg tablet 10 mg PO 4X/DAY PRN (Reason: Headache) Qty: 20 0RF Primary Care Provider: Jennifer Garcia Referrals: Melly Mendez [employer], [employer] [Non-Staff] - Disposition Disposition: Acute Care Hospital Discharge Location: [facility]
--- NOTE | 2023-10-14 16:39 | CT_ITS ---
ACR Level 3 findings have been noted. An addendum which confirms receipt of the report will follow. EXAM: CT ANGIOGRAPHY CHEST WITHOUT AND WITH INTRAVENOUS CONTRAST CLINICAL INDICATION: Dyspnea, hemoptysis TECHNIQUE: Helically acquired angiography images were obtained of the chest without and with intravenous contrast. CTDIvol = ( 11.47 ) mGy, DLP = ( 524.31 ) mGycm This CT exam was performed using one or more of the following dose reduction techniques: automated exposure control, adjustment of the mA and/or kV according to patient size, and/or use of iterative reconstruction technique. MIP reconstructed images were created and reviewed. CONTRAST: IV 100mL [id number] COMPARISON: No relevant prior studies available. FINDINGS: PULMONARY ARTERIES: Unremarkable. Normal in caliber. No evidence of pulmonary embolism. AORTA: Unremarkable. Normal in caliber. No evidence of dissection. GREAT VESSELS OF AORTIC ARCH: Unremarkable. Normal in caliber. No evidence of dissection. LUNGS AND PLEURAL SPACES: Unremarkable. No mass. No consolidation or edema. No pleural effusion or thickening. No pneumothorax. HEART: Unremarkable. Heart size is normal. No pericardial effusion. No significant coronary artery calcifications. MEDIASTINUM: Unremarkable. No mediastinal or hilar adenopathy. Esophagus is unremarkable. No hiatal hernia. THYROID: Unremarkable. No thyroid lesions. BONES/JOINTS: Unremarkable. No suspicious lytic or blastic abnormality. CT/CTA Chest W/WO Contrast IMPRESSION: No PE, pneumonia, aortic dissection or other acute disease involving the chest. Free intraperitoneal air identified at the upper abdomen. Correlate for any recent procedures or surgeries that may have been introduced free air. Otherwise, would consider the possibility of hollow viscus rupture. AIDOC was utilized to assist in identifying pertinent positive findings. Electronically Signed: Ryan Montano MD at 17:59 EST ,
[2023-10-14 16:40] VITALS: O2SAT 98
--- NOTE | 2023-10-14 16:40 | EKG12_ITS ---
Test Reason : Blood Pressure : / mmHG Vent. Rate : 069 BPM Atrial Rate : 069 BPM P-R Int : 144 ms QRS Dur : 088 ms QT Int : 390 ms P-R-T Axes : 053 037 031 degrees QTc Int : 417 ms Normal sinus rhythm Normal ECG Confirmed by ASH WALSH, BILLIE ([id number]), research editor JANE PATEL ([id number]) on 10/16/2023 1:25:18 PM Referred By: Confirmed By:BILLIE ALEMAN MD
[2023-10-14 16:59] LABS: Absolute Lymphocyte Count 2.57 X10^3/uL (0.83-4.51); Absolute Neutrophil Count 10.8 X10^3/uL (2.0-7.7); Basophil# 0.06 X10^3/uL; Basophil% 0.4 % (0-1); Eosinophil# 0.02 X10^3/uL; Eosinophils% 0.1 % (0-5); Hematocrit 39.7 % (37-47); Hemoglobin 13.6 g/dL (12.0-15.0); Lymphocyte # 2.57 X10^3/ul (0.83-4.51); Lymphocyte % 17.7 % (19-41); Mean Corp Hgb Conc 34.3 g/dL (32-36); Mean Corpuscular Hgb 28.3 pg (27.0-32.0); Mean Corpuscular Volume 82.7 fL (81-99); Monocyte% 6.9 % (0-10); NRBC Flagged by Analyzer 0 % (0-5); Neutrophil % 74.5 % (47-70); Platelet Count 413 K/mm3 (150-450); RBC Distribution Width CV 12.7 % (11.6-14.6); RBC Distribution Width SD 38.2 fl (35.1-43.9); White Blood Count 14.5 K/mm3 (4.4-11.0)
[2023-10-14 17:23] LABS: ALB/GLOB Ratio 0.9 RATIO (0.9-2.4); AST(SGOT) 20 U/L (15-37); Alanine Aminotransfer ALT/SGPT 43 U/L (13-56); Albumin, Serum 3.7 g/dL (3.2-5.0); Alkaline Phosphatase 118 U/L (45-117); Anion Gap 7 (5-15); BUN 11 mg/dL (7-18); Calcium,Total 9.5 mg/dL (8.5-10.1); Chloride 106 mmol/L (98-107); Creatinine, Serum 0.73 mg/dL (0.55-1.02); EST Glomerular Filtration Rate 96 mL/min (>60); Est Glom Filt Rate - Afr Amer 116 mL/min (>60); Estimated Creatinine Clearance 96.79 ml/min; Globulin 4.2 g/dL (2.2-4.2); Glucose 114 mg/dL (74-106); Lipase 24 U/L (13-75); Potassium 3.6 mmol/L (3.5-5.1); Protein, Total 7.9 g/dL (6.4-8.2); Sodium Level 137 mmol/L (136-145); Troponin-I HS < 3 pg/mL (3.0-54.0)
[2023-10-14 18:14] VITALS: PULSE 68; RESP 14; O2SAT 98
[2023-10-14 20:37] VITALS: BP 116/60; PULSE 69; RESP 13; O2SAT 98
--- NOTE | 2023-10-14 22:29 | ED.RN ---
Attempted to call nurse to nurse report several times, however per [facility] unit operator, that nurses station phone lines aren't working. [employer] Supervisor is unable to give that unit a message to call [facility] for report. [employer]
--- NOTE | 2023-10-14 22:33 | ED.RN ---
Several attempts made to call report to [facility] without success. [employer] network control operator states that nurses station phone lines are down. Alarm Installer states she is unable to have nurses station call [facility] for report. Alarm Installer suggests just keep trying to call back after awhile.
[2023-10-14 22:36] VITALS: BP 96/57; PULSE 67; RESP 14; O2SAT 96
[2023-10-14 23:03] VITALS: BP 111/54; PULSE 70; RESP 16; O2SAT 97
[2023-10-15 00:37] VITALS: BP 107/58; PULSE 71; RESP 15; O2SAT 98
== END 2023-10-15 00:49 | disposition short-term general hospital (02) ==
PROVIDERS: Emergency Provider Emergency Medicine; PCP Family Medicine; Visit Provider Emergency Medicine
DX: K66.8 Other specified disorders of peritoneum (principal); G89.18 Other acute postprocedural pain; K31.84 Gastroparesis; I10 Essential (primary) hypertension; E66.9 Obesity, unspecified; Z68.37 Body mass index [BMI] 37.0-37.9, adult; Z79.899 Other long term (current) drug therapy
CPT/HCPCS: 71275; 80053; 83690; 84484; 85025; 93005; 99285; Q9967; A4216

== ENCOUNTER 2024-06-26 20:02 | Emergency (ER) | payer OTHER, BC, SELFPAY ==
[2024-06-26 20:03] VITALS: BP 131/90; PULSE 105; RESP 16; TEMP 36.6; O2SAT 100; BMI 36.8
[2024-06-26] MEDS: Ketorolac 60 MG/2 ML Vial IM (20:57)
[2024-06-26 21:26] VITALS: BP 148/87; PULSE 92; RESP 18; TEMP 36.7; O2SAT 94
[2024-06-26] MEDS: predniSONE 20 MG Tablet 60 MG PO (21:26)
--- NOTE | 2024-06-26 21:47 | EDS_ITS ---
HPI History of Present Illness Chief Complaint: General Illness Informant: patient Narrative Narrative: 34-year-old female with history of psoriatic arthritis presenting to the emergency room with joint pain. Patient states that she takes Humira and is 4 days late on her Humira shot. She states that her Humira shot is in the nail and delayed by the holiday weekend. She states that she does not do well with steroids but wonders if a infusion of Solu-Medrol like her mother gets for her multiple sclerosis would be beneficial. Patient's been in contact with her garageman who can see her in the office on Thursday. She did not know what to do and they advised her to come to emergency. [facility] Medical History Psoriatic arthritis HTN (hypertension) A-fib PAC (premature atrial contraction) PVC (premature ventricular contraction) Sinus tachycardia Depression Vitamin D deficiency Hypothyroidism Home Medications ?Medication ?Instructions ?Recorded ?Last Taken ?Type buspirone 15 mg tablet 15 mg PO BID PRN 08/27/20 Unknown History sertraline 100 mg tablet (Zoloft) 100 mg PO BID 08/27/20 Unknown History levothyroxine 100 mcg tablet 100 mcg PO DAILY 09/21/20 Unknown History amlodipine 2.5 mg tablet (Norvasc) 2.5 mg PO DAILY 02/04/21 Unknown History atorvastatin 40 mg tablet (Lipitor) 40 mg PO DAILY 02/04/21 Unknown History rimegepant 75 mg disintegrating 1 tab PO PRN PRN Headache 04/18/22 Unknown History tablet (Nurtec ODT) adalimumab 40 mg/0.4 mL 40 mg subcut Q14D 06/26/24 Unknown History subcutaneous pen kit (Humira(CF) Pen) albuterol sulfate 2.5 mg/3 mL 2.5 mg inhalation Q4H PRN PRN 06/26/24 Unknown History (0.083 %) solution for nebulization wheezing amitriptyline 25 mg tablet 25 mg PO QHS 06/26/24 Unknown History duloxetine 60 mg capsule,delayed 60 mg PO DAILY 06/26/24 Unknown History release fenofibrate nanocrystallized 145 145 mg PO DAILY 06/26/24 Unknown History mg tablet ketorolac 10 mg tablet 10 mg PO Q8H PRN pain #15 tabs 06/26/24 Unknown Rx nadolol 20 mg tablet 20 mg PO DAILY 06/26/24 Unknown History prednisone 20 mg tablet 60 mg (3 x 20 mg) PO DAILY #12 06/26/24 Unknown Rx TABLETS spironolactone 50 mg tablet 50 mg PO DAILY 06/26/24 Unknown History topiramate 50 mg tablet 50 mg PO DAILY 06/26/24 Unknown History Allergy/AdvReac Type Severity Reaction Status Date / Time Sulfa (Sulfonamide Allergy Severe hives Verified 06/26/24 20:05 Antibiotics) clindamycin Allergy Intermediate Hives Verified 06/26/24 20:05 Family History Other Alcoholism Anxiety Clotting disorder Depression Diabetes Hx of transfusion of whole blood Mental disorder Myocardial infarction Thyroid disorder Surgical History Hx of section Social History Smoking Status: Never smoker alcohol intake: current alcohol intake frequency: holidays/special occasions only substance use type: does not use ROS ROS ED Constitutional Constitutional ED: Denies chills or weight loss Eyes Eyes: Denies change in vision or diplopia ENT ENT ED: Denies ear pain, rhinorrhea or sore throat Cardiovascular Cardiovascular: Denies chest pain, orthopnea, palpitations or racing heartbeat Respiratory/Chest Respiratory/Chest: Denies cough, dyspnea or orthopnea Gastrointestinal Gastrointestinal: Denies abdominal pain, diarrhea, nausea or vomiting Genitourinary Genitourinary ED: Denies dysuria, hematuria or urinary frequency Musculoskeletal Musculoskeletal: Reports arthralgias; Denies myalgias Integumentary Denies abscess or rash Neurologic Neurologic: Denies headache(s) or weakness Psychiatric Psychiatric: Denies anxiety, depression, suicidal ideation or suicidal thoughts Endocrine Endocrinology: Denies polydipsia, polyphagia or polyuria Allergic/Immunologic Allergic/Immunologic ED: Denies mouth swelling, tongue swelling or urticaria EXAM Physical Exam Const Vital Signs: 06/26/24 20:03 06/26/24 20:19 06/26/24 21:26 Temperature 97.8 F 98.1 F Temperature Source Oral Pulse Rate 105 H 92 Respiratory Rate 16 18 Respiratory Effort Normal Non-Labored Respiratory Pattern Normal Blood Pressure 131/90 H 148/87 H Blood Pressure Mean 103 107 Pulse Ox 100 94 Oxygen Delivery Method Room Air Positive well nourished and well developed General Appearance ED: well developed HEENT Reports normocephalic, head/scalp atraumatic and moist mucous membranes Eyes PERRL and EOMs intact bilaterally Neck no lymphadenopathy, supple and no JVD Resp normal respiratory effort and clear to auscultation bilaterally Cardio regular rate, regular rhythm and no murmurs GI normal to inspection, nondistended, normoactive bowel sounds and non-tender Palpation: soft Back/Spine no CVA tenderness and normal ROM Extremity normal to inspection General Extremety ED: Negative for edema General Extremity: Negative for edema Neuro oriented x3 and CN's II-XII intact bilaterally Sensorium / Orientation: alert Motor Exam: strength 5/5 throughout Psych mental status grossly normal Mood & Affect: Negative for depressed or tearful Skin no rashes or lesions noted and no wounds MDM MDM MDM Narrative Medical decision making narrative: I spoke with pharmacy. We do not have Humira on formulary and they do not have access to it in the outpatient pharmacy. There are no pharmacies in [facility] open at this time. I spoke with the patient and gave her a shot of Toradol which she states is helping her. Told her I could write for some outpatient Toradol or we could try some prednisone. I also offered to write her a prescription for Humira that she could call pharmacies tomorrow to see if they would have it available. She states she prefer to wait until Thursday but she is willing to try some steroids and work on her anxiety. She would also like some Toradol if possible. I think this is reasonable plan. History & Record Review Discussion w/independent historian: Patient Discharge Plan Triage Chief Complaint: General Illness ED Provider: Duglas Hector Dx/Rx/DC Orders Clinical Impression: Flare of rheumatoid arthritis Instructions: What is Rheumatoid Arthritis? Prescriptions: New prednisone 20 mg tablet 60 mg PO DAILY Qty: 12 0RF ketorolac 10 mg tablet 10 mg PO Q8H PRN (Reason: pain) Qty: 15 0RF Rx Instructions: maximum total duration of 5 days from all oral, intranasal, or parenteral formulations No Action sertraline [Zoloft] 100 mg tablet 100 mg PO BID buspirone 15 mg tablet 15 mg PO BID PRN atorvastatin [Lipitor] 40 mg tablet 40 mg PO DAILY amlodipine [Norvasc] 2.5 mg tablet 2.5 mg PO DAILY levothyroxine 100 MCG tablet 100 mcg PO DAILY Nurtec ODT 75 mg tablet,disintegrating 1 tab PO PRN PRN (Reason: Headache) Patient Comments: TAKE 1 TABLET AT ONSET OF HEADACHE. MAX DOSE OF 1 TABLET IN 24 HOURS Humira(CF) Pen 40 mg/0.4 mL pen injector kit 40 mg subcut Q14D Rx Instructions: start on day 29 of therapy nadolol 20 mg tablet 20 mg PO DAILY amitriptyline 25 mg tablet 25 mg PO QHS spironolactone 50 mg tablet 50 mg PO DAILY Rx Instructions: 50mg in the morning and 100mg in the evening duloxetine 60 mg capsule,delayed release(DR/EC) 60 mg PO DAILY fenofibrate nanocrystallized 145 mg tablet 145 mg PO DAILY topiramate 50 mg tablet 50 mg PO DAILY albuterol sulfate 2.5 mg /3 mL (0.083 %) solution for nebulization 2.5 mg inhalation Q4H PRN PRN (Reason: wheezing) Primary Care Provider: Jennifer Garcia Referrals: Jennifer Garcia DO [Primary Care Provider] - Activity Restrictions/Additional Instructions: Please follow-up with your garageman Print Language: Chinese Disposition Disposition: Home, Self Care Discharge Date/Time: 06/26/24 21:29
== END 2024-06-26 21:29 | disposition home or self-care (01) ==
PROVIDERS: Emergency Provider Emergency Medicine; PCP Family Medicine; Visit Provider Emergency Medicine
DX: M06.9 Rheumatoid arthritis, unspecified (principal); I10 Essential (primary) hypertension; Z79.899 Other long term (current) drug therapy
CPT/HCPCS: 96372; 99282